=== PATIENT | male | born 1960 | race Caucasian/White ===

== ENCOUNTER 2017-05-22 18:50 | Emergency (ER) | payer OTHER ==
[~2017-05-22] VITALS: Wt 99.8 kg
== END 2017-05-22 19:48 | disposition home or self-care (01) ==
LOC: ED 18:50
DX: R20.2 Paresthesia of skin (principal); R03.0 Elevated blood-pressure reading, without diagnosis of hypertension

== ENCOUNTER 2017-12-24 11:08 | Emergency (ER) | payer OTHER ==
[~2017-12-24] VITALS: Ht 190.5 cm; Wt 93.0 kg
--- NOTE | ~2017-12-24 | EKG ---
[place], [place] ELECTROCARDIOGRAM REPORT NAME: COOKIE OHARA UNIT #: [id number] ROOM: DOCTOR: ANNMARIE DRAFT REPORT BIRTHDATE: [birth year] [facility] Test Date: 2017-12-24 Test Time: 11:40:05 Pat Name: COOKIE OHARA Department: Room: Gender: Personnel Coordinator: Shirley Alba : 1960 Requested By: ROSALES POWELL Order Number: [id number] Reading MD: Matt Cabral MD Measurements Intervals [place] Rate: 79 P: 69 [place]: 201 QRS: 30 QRSD: 84 T: 58 QT: 384 QTc: 441 Interpretive Statements Sinus rhythm Baseline wander in lead(s) V2 Electronically Signed On 12-25-2017 13:24:08 PDT by Matt Cabral MD CM:EKGRPT:ELECTROCARDIOGRAM REPORT [id number] ROSALES ANGUIANO DRAFT REPORT ROSALES POWELL M.D.
[2017-12-24 11:52] LABS: BASO % 0.6 % (0.0-1.0); EOS # 0.3 10*3/uL (0.0-0.4); EOS % 3.6 % (1.0-4.0); HEMATOCRIT 45.3 % (42.0-52.0); HEMOGLOBIN 15.7 g/dl (14.0-18.0); LYMPH # 1.6 10*3/uL (1.3-4.4); LYMPH % 23.6 % (27.0-41.0); MEAN CORPUSCULAR HGB 34.7 pg (27.0-31.0); MEAN CORPUSCULAR HGB CONC 34.7 g/dl (33.0-37.0); MEAN PLATELET VOLUME 9.9 fl (9.6-12.3); MONO # 0.6 10*3/uL (0.1-1.0); MONO % 8.5 % (3.0-9.0); NEUT # 4.4 10*3/uL (2.3-7.9); NEUT % 63.6 % (47.0-73.0); PLATELET COUNT AUTOMATED 245 10*3/uL (130-400); RED BLOOD COUNT 4.53 10*6/uL (4.50-5.90); RED CELL DISTRI WIDTH 11.9 % (0-14.5); WHITE BLOOD COUNT 6.9 10*3/uL (4.8-10.8)
[2017-12-24 12:09] LABS: ALBUMIN 3.9 gm/dl (3.1-4.5); ALKALINE PHOSPHATASE 95 U/L (45-117); BUN 9 mg/dl (7-24); CHLORIDE 108 mmol/L (98-107); CREATININE 1.01 mg/dL (0.70-1.30); POTASSIUM 4.3 mmol/L (3.5-5.1); SGOT/AST 12 IU/L (3-35); SGPT/ALT 31 U/L (12-78); SODIUM 141 mmol/L (136-145); TOTAL PROTEIN 7.4 gm/dL (6.4-8.2)
== END 2017-12-24 19:55 | disposition short-term general hospital (02) ==
LOC: ED 11:08
PROVIDERS: Emergency Medicine
DX: I63.9 Cerebral infarction, unspecified (principal)

== ENCOUNTER 2018-02-14 13:51 | Emergency (ER) | payer OTHER ==
[~2018-02-14] VITALS: Ht 190.5 cm; Wt 99.8 kg
--- NOTE | ~2018-02-14 | EKG ---
[place], [place] ELECTROCARDIOGRAM REPORT NAME: COOKIE OHARA UNIT #: [id number] ROOM: DOCTOR: EPIPHANY DRAFT REPORT BIRTHDATE: [birth year] [facility] Test Date: 2018-02-14 Test Time: 14:26:00 Pat Name: COOKIE OHARA Department: Room: Gender: Gun Profiler: Shirley Alba : 1960 Requested By: ANNY CERVANTES Order Number: [id number] Reading MD: Alli Reddy MD Measurements Intervals [place] Rate: 67 P: 56 [place]: 194 QRS: 25 QRSD: 94 T: 54 QT: 402 QTc: 425 Interpretive Statements Sinus rhythm Compared to ECG 12/24/2017 11:40:05 No significant changes Electronically Signed On 02-16-2018 5:29:48 PST by Alli Reddy MD CM:EKGRPT:ELECTROCARDIOGRAM REPORT [id number] ANNY CERVANTES MD EPIPHANY DRAFT REPORT ANNY CERVANTES MD
[2018-02-14 14:19] LABS: BASO % 0.4 % (0.0-1.0); EOS # 0.2 10*3/uL (0.0-0.4); EOS % 2.6 % (1.0-4.0); HEMATOCRIT 41.7 % (42.0-52.0); HEMOGLOBIN 14.6 g/dl (14.0-18.0); LYMPH # 1.5 10*3/uL (1.3-4.4); LYMPH % 15.9 % (27.0-41.0); MEAN CELL VOLUME 96.1 fl (80.0-94.0); MEAN CORPUSCULAR HGB 33.6 pg (27.0-31.0); MEAN PLATELET VOLUME 9.7 fl (9.6-12.3); MONO # 0.7 10*3/uL (0.1-1.0); MONO % 7.6 % (3.0-9.0); NEUT # 6.8 10*3/uL (2.3-7.9); NEUT % 73.1 % (47.0-73.0); PLATELET COUNT AUTOMATED 206 10*3/uL (130-400); RED BLOOD COUNT 4.34 10*6/uL (4.50-5.90); RED CELL DISTRI WIDTH 11.7 % (0-14.5); WHITE BLOOD COUNT 9.3 10*3/uL (4.8-10.8)
[2018-02-14 14:34] LABS: ACT PARTIAL THROMBO TIME 19.8 SECONDS (20.8-31.5)
[2018-02-14 14:35] LABS: BUN 14 mg/dl (7-24); CHLORIDE 104 mmol/L (98-107); CREATININE 1.12 mg/dL (0.70-1.30); POTASSIUM 4.2 mmol/L (3.5-5.1); SODIUM 135 mmol/L (136-145)
[2018-02-14 14:42] LABS: TROPONIN I < 0.015 ng/ml (<0.045)
== END 2018-02-14 14:56 | disposition home or self-care (01) ==
LOC: ED 13:51
PROVIDERS: Emergency Medicine
DX: R42 Dizziness and giddiness (principal); R53.1 Weakness; R11.0 Nausea; Z87.891 Personal history of nicotine dependence; Z86.73 Personal history of transient ischemic attack (TIA), and cerebral infarction without residual deficits

== ENCOUNTER → 2018-11-23 | Outpatient (CLI) | payer OTHER ==
[2018-11-23 14:12] LABS: ALBUMIN 3.9 gm/dl (3.1-4.5); BUN 12 mg/dl (7-24); CHLORIDE 110 mmol/L (98-107); CHOLESTEROL 126 mg/dL (<200); POTASSIUM 3.8 mmol/L (3.5-5.1); SGOT/AST 21 IU/L (3-35); SODIUM 140 mmol/L (136-145)
[2018-11-23 14:16] LABS: ALKALINE PHOSPHATASE 102 U/L (45-117); CREATININE 0.95 mg/dL (0.70-1.30); HDL CHOLESTEROL 31 mg/dl (40-60); LDL CHOLESTEROL 64 mg/dL (9-159); SGPT/ALT 58 U/L (12-78); TOTAL PROTEIN 7.5 gm/dL (6.4-8.2); TRIGLYCERIDES 157 mg/dl (<150); VLDL CHOLESTEROL 31 mg/dL (6-40)
== END | disposition home or self-care (01) ==
LOC: CARD 13:19
PROVIDERS: Family Medicine
DX: I63.89 Other cerebral infarction (principal); R06.00 Dyspnea, unspecified

== ENCOUNTER 2019-01-17 21:34 | Emergency (ER) | payer OTHER ==
[~2019-01-17] VITALS: Ht 190.5 cm; Wt 109.8 kg
[2019-01-17 22:28] LABS: BASO # 0.1 10*3/uL (0.0-0.1); BASO % 0.5 % (0.0-1.0); EOS # 0.3 10*3/uL (0.0-0.4); EOS % 2.7 % (1.0-4.0); HEMATOCRIT 39.4 % (42.0-52.0); HEMOGLOBIN 13.7 g/dl (14.0-18.0); LYMPH # 1.9 10*3/uL (1.3-4.4); LYMPH % 20.1 % (27.0-41.0); MEAN CORPUSCULAR HGB 34.4 pg (27.0-31.0); MEAN CORPUSCULAR HGB CONC 34.8 g/dl (33.0-37.0); MEAN PLATELET VOLUME 9.9 fl (9.6-12.3); MONO # 0.7 10*3/uL (0.1-1.0); MONO % 6.8 % (3.0-9.0); NEUT # 6.7 10*3/uL (2.3-7.9); NEUT % 69.5 % (47.0-73.0); PLATELET COUNT AUTOMATED 206 10*3/uL (130-400); RED BLOOD COUNT 3.98 10*6/uL (4.50-5.90); RED CELL DISTRI WIDTH 11.7 % (0-14.5); WHITE BLOOD COUNT 9.6 10*3/uL (4.8-10.8)
[2019-01-17 22:40] LABS: ACT PARTIAL THROMBO TIME 23.8 SECONDS (20.0-32.1)
[2019-01-17 22:42] LABS: ALBUMIN 3.7 gm/dl (3.1-4.5); ALKALINE PHOSPHATASE 90 U/L (45-117); BUN 12 mg/dl (7-24); CHLORIDE 102 mmol/L (98-107); CREATININE 0.81 mg/dL (0.70-1.30); POTASSIUM 3.5 mmol/L (3.5-5.1); SGOT/AST 22 IU/L (3-35); SGPT/ALT 53 U/L (12-78); SODIUM 133 mmol/L (136-145); TOTAL PROTEIN 7.1 gm/dL (6.4-8.2)
[2019-01-17] MEDS ORDERED: AUGMENTIN 875875 MG PO (23:57)
== END 2019-01-18 00:09 | disposition home or self-care (01) ==
LOC: ED 21:34
PROVIDERS: Nurse Practitioner
DX: S02.2XXA Fracture of nasal bones, initial encounter for closed fracture (principal); S02.401A Maxillary fracture, unspecified side, initial encounter for closed fracture; F10.10 Alcohol abuse, uncomplicated; Z79.01 Long term (current) use of anticoagulants; Z79.82 Long term (current) use of aspirin; Z86.73 Personal history of transient ischemic attack (TIA), and cerebral infarction without residual deficits; W01.198A Fall on same level from slipping, tripping and stumbling with subsequent striking against other object, initial encounter; Y93.01 Activity, walking, marching and hiking; Y92.098 Other place in other non-institutional residence as the place of occurrence of the external cause; Y99.9 Unspecified external cause status; Y90.9 Presence of alcohol in blood, level not specified

== ENCOUNTER → 2022-06-05 | Outpatient (CLI) | payer OTHER ==
[~2022-06-05] MED LIST: AUGMENTIN 875875 MG PO
== END ==
LOC: US 01:49
PROVIDERS: ATTEND Internal Medicine
DX: I70.203 Unspecified atherosclerosis of native arteries of extremities, bilateral legs (principal)

== ENCOUNTER → 2022-06-19 | Outpatient (CLI) | payer OTHER | END | disposition home or self-care (01) | LOC: US 01:56 | PROVIDERS: ATTEND Internal Medicine | DX: K76.0 Fatty (change of) liver, not elsewhere classified (principal); N28.1 Cyst of kidney, acquired ==

== ENCOUNTER → 2022-09-22 | Day surgery (SDC) | payer OTHER ==
[~2022-09-22] VITALS: Ht 190.5 cm
[~2022-09-22] MED LIST changes: +ASPIRIN ADULT L81 M2 PO; +ATORVASTATIN CA80 M1 PO; +CLOPIDOGREL75 MG PO; +VITAMIN D3125 MCG PO
[2022-09-22 10:20] VITALS: BP 143/73
[2022-09-22 11:40] VITALS: BP 94/48
[2022-09-22 11:55] VITALS: BP 145/84
[2022-09-22 12:09] VITALS: BP 151/90
== END ==
LOC: SDC 09-19 08:45
PROVIDERS: ATTEND Surgery
DX: R19.5 Other fecal abnormalities (principal); K63.5 Polyp of colon; K62.1 Rectal polyp; K63.9 Disease of intestine, unspecified; I10 Essential (primary) hypertension; E78.5 Hyperlipidemia, unspecified; E53.8 Deficiency of other specified B group vitamins; Z86.73 Personal history of transient ischemic attack (TIA), and cerebral infarction without residual deficits; Z87.891 Personal history of nicotine dependence; Z79.899 Other long term (current) drug therapy; Z98.890 Other specified postprocedural states